=== PATIENT | female | born 1945 | race Caucasian/White ===

== ENCOUNTER 2024-12-27 08:37 | Emergency (ER) | payer MEDICARE, SELFPAY ==
[2024-12-27 08:40] VITALS: BP 113/71; PULSE 70; RESP 16; TEMP 36.6; O2SAT 97
--- NOTE | 2024-12-27 09:06 | PC.PHAR ---
patient is from [place] waiting on fax with the med list
--- NOTE | 2024-12-27 09:22 | W.ED.GENADLT ---
HPI - General Adult General: Chief complaint: Vaginal Bleeding Stated complaint: Vag Prolapse Time Seen by Provider: 12/27/24 08:39 History of Present Illness: 79-year-old female with moderate dementia presents emergency room via EMS with complaint of vaginal prolapse. She has some slight bleeding from this. No other reported symptoms. Patient is not able to tell me why she is here. Report from EMS was that she does attempt to wander from her dementia unit. Related Data Home Medications ?Medication ?Instructions ?Recorded ?Confirmed amlodipine 2.5 mg tablet 2.5 mg PO DAILY 12/27/24 12/27/24 memantine 5 mg tablet 15 mg PO DAILY 12/27/24 12/27/24 mirtazapine 15 mg tablet 15 mg PO QPM 12/27/24 12/27/24 Allergies Allergy/AdvReac Type Severity Reaction Status Date / Time No Known Allergies Allergy Verified 12/27/24 08:55 Review of Systems General: Reports: ROS unobtainable due to mental status Physical Exam Const: COMMON NORMALS: no acute distress GENERAL APPEARANCE: cooperative and comfortable HENMT: COMMON NORMALS: normocephalic, atraumatic and hearing grossly normal bilaterally HEAD & SCALP: normocephalic and atraumatic Resp: COMMON NORMALS: normal respiratory effort, No retractions, No use of accessory muscles and clear to auscultation bilaterally AUSCULTATION: clear to auscultation bilaterally Cardio: COMMON NORMALS: regular rate, regular rhythm and No murmurs present (Cardio) RATE: regular rate RHYTHM: regular rhythm GI: COMMON NORMALS: Soft to palpation and No hepatosplenomegaly present AUSCULTATION: Yes normoactive bowel sounds PALPATION: Yes Soft to palpation, No Tenderness to palpation present (GI), No Guarding due to palpation present (GI) and Yes No hepatosplenomegaly present : OTHER: Patient has vaginal prolapse with some ulceration. Superficially in the vaginal mucosa and the cervix. Easily reduced manually. Reverts to prolapse shortly after initial reduction. Extremity: COMMON NORMALS: normal to inspection, capillary refill normal, no clubbing, cyanosis or edema, no calf tenderness and no pedal edema Skin: COMMON NORMALS: no rashes or lesions noted GENERAL SKIN EXAM: no rashes or lesions noted Course Vital Signs: Vital signs: Vital Signs Temperature 97.8 F 12/27/24 08:40 Pulse Rate 70 12/27/24 08:40 Respiratory Rate 16 12/27/24 08:40 Blood Pressure 113/71 12/27/24 08:40 Pulse Oximetry 97 12/27/24 08:40 Oxygen Delivery Me thod Room Air 12/27/24 08:40 MDM - General Adult Medical Decision Making Easily reducible uterine prolapse however with minimal Valsalva she reprolapses. There is some ulceration and scant bleeding from it being prolapsed. Recommend applying topical water-based lubricant to minimize irritation to mucosal surfaces that are exposed refer to gynecology. Not emergent condition at this time UA was negative. Medical Records I reviewed the patient's medical records. Lab Data I reviewed the patient's lab results. Laboratory Results Urine Color Yellow (Yellow) 12/27/24 09:24 Urine Appearance Clear (CLEAR) 12/27/24 09:24 Urine pH 5.5 (5-7) 12/27/24 09:24 Ur Specific [place] 1.029 (1.005-1.030) 12/27/24 09:24 Urine Protein Negative (Negative) 12/27/24 09:24 Urine Glucose (UA) Negative (Normal) 12/27/24 09:24 Urine Ketones Negative (Negative) 12/27/24 09:24 Urine Blood Negative (Negative) 12/27/24 09:24 Urine Nitrate Negative (Negative) 12/27/24 09:24 Urine Bilirubin Negative (Negative) 12/27/24 09:24 Urine Urobilinogen 1.0 mg/dL (Negative) 12/27/24 09:24 Ur Leukocyte Esterase Negative (Negative) 12/27/24 09:24 Amorphous Sediment Not Reportable 12/27/24 09:24 No radiology studies performed this visit Discharge Plan Discharge Patient Disposition: Home Clinical Impression: Uterine prolapse Condition: Stable Prescriptions: No Action amlodipine 2.5 mg Tablet 2.5 mg PO DAILY mirtazapine 15 mg Tablet 15 mg PO QPM memantine 5 mg Tablet 15 mg PO DAILY Discharge Orders: Discharge ED (Routine); Ordered 12/27/24 Ordered By: David Dowd Discharge Diet: Usual diet Discharge Activity: Resume usual activity Patient Instructions: Opioid Safety, Pain Management Activity Restrictions/Additional Instructions: Thank you for choosing [facility] for your healthcare needs today. It is very important that you follow up as instructed or that you return to the Emergency Department should you have concerns or if your condition changes or worsens in any way. You were seen in the emergency room with complaints of a uterine prolapse. This is a nonemergent condition recommend applying topical water-based lubricant to the prolapsed portions they can be reduced as needed however whenever you are upright sitting up or strains such as to have a bowel movement or urinate it will likely prolapse spontaneously. Case management will make an appointment to follow-up with gynecology for treatment options. We did check a urine as well there is no sign of urinary tract infection at this time. Print Language: Kiswahili Coding Level of Care Code ED Program Development Specialist for Munira Lin
[2024-12-27 09:38] LABS: Bilirubin Urine Negative (Negative); Blood Urine Negative (Negative); Glucose Urine UA Negative (Normal); Ketones Urine Negative (Negative); Leukocyte Esterase Urine Negative (Negative); Nitrate Urine Negative (Negative); Protein Urine Negative (Negative); Specific Gravity, Urine 1.029 (1.005-1.030); Urine Appearance Clear (CLEAR); Urine Color Yellow (Yellow); pH Urine 5.5 (5-7)
[2024-12-27 09:43] LABS: Add Urine Microscopic? YES; Bacteria Urine None Seen /hpf; Hyaline Casts Urine 4.11 /lpf; Squamous Epithelial Cell Urine 0-5 /hpf (0-5)
[2024-12-27 10:04] LABS: UA Slide Review UA Slide Review Perf
[2024-12-27 10:44] VITALS: BP 112/80; PULSE 72; O2SAT 97
--- NOTE | 2024-12-29 07:46 | DCPLANNER ---
messaged [facility] for er f/u
== END 2024-12-27 10:55 | disposition home or self-care (01) ==
PROVIDERS: Emergency Provider Family Medicine
DX: N81.4 Uterovaginal prolapse, unspecified (principal)
CPT/HCPCS: 81001; 99283

== ENCOUNTER 2024-12-28 23:44 | Emergency (ER) | payer MEDICARE, SELFPAY ==
[2024-12-28 23:52] VITALS: BP 173/72; PULSE 82; RESP 18; TEMP 36.7; O2SAT 98; BMI 22.4
[2024-12-29 00:01] VITALS: RESP 18
--- NOTE | 2024-12-29 00:32 | W.ED.FEMALGU ---
HPI - Female Genitourinary General: Chief complaint: Urogenital-Female Stated complaint: BLADDER ISSUE Time Seen by Provider: 12/28/24 23:53 History of Present Illness: This patient is an 79-year-old white female [facility] resident who was sent to the emergency department for evaluation of uterine prolapse. This has happened several times recently. Her sons are here with her and they state that she was just recently placed in the penitentiary and has her first primary care appointment coming up later this week. They plan on getting a referral to gynecology. [facility] sent the patient in because they noticed some bleeding. Related Data Home Medications ?Medication ?Instructions ?Recorded ?Confirmed amlodipine 2.5 mg tablet 2.5 mg PO DAILY 12/27/24 12/27/24 memantine 5 mg tablet 15 mg PO DAILY 12/27/24 12/27/24 mirtazapine 15 mg tablet 15 mg PO QPM 12/27/24 12/27/24 Allergies Allergy/AdvReac Type Severity Reaction Status Date / Time No Known Allergies Allergy Verified 12/28/24 23:56 Review of Systems General: Reports: 10 or more systems reviewed and unremarkable except in HPI and below : Reports: prolapse symptoms Physical Exam Const: COMMON NORMALS: no acute distress, patient oriented x3 and no limitations GENERAL APPEARANCE: cooperative and comfortable HENMT: COMMON NORMALS: normocephalic, atraumatic, Normal nasal mucous membranes and turbinates present, moist oral mucous membranes and oropharynx normal HEAD & SCALP: normal to inspection, normocephalic and atraumatic FACE & SINUS: normal facial exam NOSE: Normal nasal mucous membranes and turbinates present Eye: COMMON NORMALS: Equal, round and reactive pupils present, EOMs intact bilaterally and conjunctivae normal GENERAL EYE: appearance normal, both eyes and all related structures CONJUNCTIVA: Yes conjunctivae normal PUPIL: Yes Equal, round and reactive pupils present Neck/C-Spine: COMMON NORMALS: supple and no JVD Chest: COMMONS NORMALS: normal inspection of the chest Resp: COMMON NORMALS: normal respiratory effort and clear to auscultation bilaterally AUSCULTATION: clear to auscultation bilaterally Cardio: COMMON NORMALS: no JVD, regular rate, regular rhythm, No gallops present (Cardio), No murmurs present (Cardio) and No rub (Cardio) RATE: regular rate RHYTHM: regular rhythm GI: COMMON NORMALS: Normal to inspection, nondistended, normoactive bowel sounds present, Soft to palpation and non-tender AUSCULTATION: Yes normoactive bowel sounds PALPATION: Yes Soft to palpation : COMMON NORMALS: Yes no CVA tenderness BLADDER/KIDNEY EXAM: Yes no CVA tenderness EXTERNAL FEMALE EXAM: Yes other (Uterine prolapse) Back/Pelvis: COMMON NORMALS: no CVA tenderness and thoracic and lumbar spine normal to inspection Extremity: COMMON NORMALS: normal to inspection Neuro: COMMON NORMALS: patient oriented x3 and CN's II-XII intact bilaterally Psych: COMMON NORMALS: mental status grossly normal, Normal thought process present and cooperative THOUGHT PROCESS: Normal thought process present Skin: COMMON NORMALS: no rashes or lesions noted, turgor normal and no jaundice GENERAL SKIN EXAM: no rashes or lesions noted and turgor normal Course Vital Signs: Vital signs: Vital Signs Temperature 98.0 F 12/28/24 23:52 Pulse Rate 82 12/28/24 23:52 Respiratory Rate 18 12/29/24 00:01 Blood Pressure 173/72 12/28/24 23:52 Pulse Oximetry 98 12/28/24 23:52 [facility] - Female Medical Decision Making I did easily reduce the prolapse. Patient was [facility] the [facility]. Follow-up with primary care and gynecology. No radiology studies performed this visit Discharge Plan Discharge Patient Disposition: Home Clinical Impression: Uterine prolapse Condition: Stable Prescriptions: No Action amlodipine 2.5 mg Tablet 2.5 mg PO DAILY mirtazapine 15 mg Tablet 15 mg PO QPM memantine 5 mg Tablet 15 mg PO DAILY Discharge Orders: Discharge ED (Routine); Ordered 12/29/24 Ordered By: Ozzy Murphy Patient Instructions: Uterine Prolapse (ED) Activity Restrictions/Additional Instructions: Follow-up with gynecology. Print Language: Welsh Coding Level of Care Code ED Pipelaying Fitter for Munira Lin
[2024-12-29 00:44] VITALS: BP 173/72; PULSE 71; O2SAT 94
== END 2024-12-29 00:46 | disposition home or self-care (01) ==
PROVIDERS: Emergency Provider Emergency Medicine
DX: N81.4 Uterovaginal prolapse, unspecified (principal)
CPT/HCPCS: 99282

== ENCOUNTER 2025-01-08 05:17 | Emergency (ER) | payer MEDICARE, SELFPAY ==
[2025-01-08 05:19] VITALS: BP 156/88; PULSE 83; RESP 18; TEMP 36.2; O2SAT 98; BMI 20.3
--- NOTE | 2025-01-08 05:30 | CTR_ITS ---
PROCEDURE INFORMATION: Exam: CT Abdomen And Pelvis With Contrast Exam date and time: 01/08/2025 6:18 AM Age: 79 years old Clinical indication: Vomiting TECHNIQUE: Imaging protocol: Computed tomography of the abdomen and pelvis with contrast. Radiation optimization: All CT scans at this facility use at least one of these dose optimization techniques: automated exposure control; mA and/or kV adjustment per patient size (includes targeted exams where dose is matched to clinical indication); or iterative reconstruction. Contrast material: OMNI 350; Contrast volume: 100 ml; Contrast route: INTRAVENOUS (IV); COMPARISON: No relevant prior studies available. RADIATION DOSE METRICS: Total DLP (mGy-cm): 518.14 FINDINGS: Liver: Normal. No mass. Gallbladder and biliary ducts: Normal. No calcified stones. No ductal dilation. Pancreas: Normal. No ductal dilation. Spleen: Normal. No splenomegaly. Adrenal glands: 9 mm left adrenal indeterminate nodule. Kidneys and ureters: Prominence left renal pelvis. Left renal peripelvic cysts. No definite hydronephrosis. Stomach and bowel: There are mildly prominent small bowel loops throughout the abdomen with mild bowel wall thickening suggesting mild enteritis. Appendix: No evidence of appendicitis. Intraperitoneal space: Unremarkable. No free air. No significant fluid collection. Vasculature: Calcified atherosclerotic plaque noted. Lymph nodes: Unremarkable. No enlarged lymph nodes. Urinary bladder: Unremarkable as visualized. Reproductive: There has been hysterectomy. Bones/joints: Unremarkable. No acute fracture. Soft tissues: Unremarkable. CT/CT abdomen pelvis w con* [id number] IMPRESSION: 1. 9 mm left adrenal indeterminate nodule. Consider nonemergent unenhanced CT or MR abdomen for further evaluation. 2. Findings suggesting enteritis. COMMENTS: Consistent with the [employer]'s Incidental Findings Committee white paper (J Am Vito Radiol 2017): Any incidental adrenal lesion less than 1 cm is likely benign. No follow-up imaging is recommended for these lesions per consensus recommendations based on imaging criteria. Further lab evaluation could be pursued if warranted based on clinical findings.
--- NOTE | 2025-01-08 05:36 | W.ED.NAVMDI ---
HPI - Nausea/Vomiting/Diarrhea General: Chief complaint: Nausea/Vomiting/Diarrhea Stated complaint: N/V Time Seen by Provider: 01/08/25 05:22 Source: EMS Mode of arrival: EMS Limitations: altered mental status History of Present Illness: 79-year-old female is here from detention patient has a history dementia no history is available from her. Per EMS nursing was concerned she may have a small bowel obstruction she has been having vomiting since last night some abdominal cramping she is in no distress here no fever has not had a bowel movement in a couple days. Associated nausea: Yes Associated symtoms: Reports altered mental status and nausea; Denies chest pain, dysuria or headache(s) Related Data Home Medications ?Medication ?Instructions ?Recorded ?Confirmed amlodipine 2.5 mg tablet 2.5 mg PO DAILY 12/27/24 01/08/25 memantine 5 mg tablet 15 mg PO DAILY 12/27/24 01/08/25 mirtazapine 15 mg tablet 15 mg PO QPM 12/27/24 01/08/25 lorazepam 0.5 mg tablet 0.5 mg PO DAILY PRN Anxiety 01/08/25 01/08/25 Previous Rx's ?Medication ?Instructions ?Recorded cephalexin 500 mg capsule 500 mg PO TID 7 days #21 caps 01/08/25 ondansetron 4 mg disintegrating 4 mg PO Q6H PRN nausea and 01/08/25 tablet vomiting #14 tabs Allergies Allergy/AdvReac Type Severity Reaction Status Date / Time No Known Allergies Allergy Verified 12/28/24 23:56 Review of Systems Const: Denies: fever(s), chills, body aches or change in appetite ENMT: Denies: throat pain or dental pain Card: Denies: chest pain Resp: Denies: dyspnea GI: Reports: nausea and vomiting; Denies: abdominal pain or diarrhea : Denies: dysuria Musc: Denies: neck pain or back pain Skin/Breast: Denies: rash Neuro: Denies: headache(s) Physical Exam Const: EXAM LIMITATIONS: altered mental status GENERAL APPEARANCE: well kempt HENMT: COMMON NORMALS: normocephalic and atraumatic HEAD & SCALP: normocephalic and atraumatic Eye: COMMON NORMALS: conjunctivae normal CONJUNCTIVA: Yes conjunctivae normal Neck/C-Spine: COMMON NORMALS: full ROM and supple Chest: COMMONS NORMALS: normal inspection of the chest and normal palpation of entire chest wall Resp: COMMON NORMALS: normal respiratory effort, No retractions, No use of accessory muscles and clear to auscultation bilaterally AUSCULTATION: clear to auscultation bilaterally Cardio: COMMON NORMALS: regular rate, regular rhythm and No murmurs present (Cardio) RATE: regular rate RHYTHM: regular rhythm GI: COMMON NORMALS: Normal to inspection, nondistended, normoactive bowel sounds present, Soft to palpation, non-tender and no masses PALPATION: Yes Soft to palpation Extremity: COMMON NORMALS: normal to inspection and full ROM Neuro: COMMON NORMALS: moves all extremities and no focal motor deficits Psych: COMMON NORMALS: mental status grossly normal, Normal thought process present and cooperative APPEARANCE: Yes well kempt THOUGHT PROCESS: Normal thought process present Skin: COMMON NORMALS: no rashes or lesions noted and no wounds GENERAL SKIN EXAM: no rashes or lesions noted Course Vital Signs: Vital signs: Vital Signs Temperature 97.1 F L 01/08/25 05:19 Pulse Rate 78 01/08/25 06:40 Respiratory Rate 16 01/08/25 06:40 Blood Pressure 165/71 01/08/25 06:40 Pulse Oximetry 98 01/08/25 06:40 Oxygen Delivery Me thod Room Air 01/08/25 06:40 MDM - Nausea/Vomiting/Diarrhea Medical Decision Making Patient presents here with vomiting she was found to have a UTI CT showed no acute abnormalities no signs obstruction she is able to tolerate p.o. here we will start on antibiotics for UTI she is follow-up PCP return if worsening. Medical Records I reviewed the patient's medical records. Lab Data I reviewed the patient's lab results. 01/08/25 05:34 01/08/25 05:34 Radiology Impressions Abdomen/Pelvis CT 01/08/25 05:30 IMPRESSION: 1. 9 mm left adrenal indeterminate nodule. Consider nonemergent unenhanced CT or MR abdomen for further evaluation. 2. Findings suggesting enteritis. COMMENTS: Consistent with the [employer]'s Incidental Findings Committee white paper (J Am Vito Radiol 2017): Any incidental adrenal lesion less than 1 cm is likely benign. No follow-up imaging is recommended for these lesions per consensus recommendations based on imaging criteria. Further lab evaluation could be pursued if warranted based on clinical findings. Laboratory Results WBC 14.01 10^3/uL (3.29-11.43) H 01/08/25 05:34 RBC 3.99 10^6/uL (3.85-5.65) 01/08/25 05:34 Hgb 11.60 g/dL (11.27-16.99) 01/08/25 05:34 Hct 36.3 % (36-47) 01/08/25 05:34 MCV 91.0 fl (85-98) 01/08/25 05:34 MCH 29.1 pg (27-33) 01/08/25 05:34 MCHC 32.0 g/dL (30-55) 01/08/25 05:34 RDW 14.5 % (12.1-15.1) 01/08/25 05:34 Plt Count 218 10^3/cmm (157-399) 01/08/25 05:34 MPV 8.5 fL (7.4-10.4) 01/08/25 05:34 Neut % (Auto) 90.5 % 01/08/25 05:34 Lymph % (Auto) 2.8 % 01/08/25 05:34 Victoria % (Auto) 4.6 % 01/08/25 05:34 Eos % (Auto) 1.4 % 01/08/25 05:34 Baso % (Auto) 0.2 % 01/08/25 05:34 Neut # (Auto) 12.67 10^3/uL (1.8-7.7) H 01/08/25 05:34 Lymph # (Auto) 0.4 10^3/uL (0.8-4.8) L 01/08/25 05:34 Victoria # (Auto) 0.7 10^3/uL (0.2-0.9) 01/08/25 05:34 Eos # (Auto) 0.2 10^3/uL (0.0-0.8) 01/08/25 05:34 Baso # (Auto) 0.0 10^3/uL (0.0-0.1) 01/08/25 05:34 Nucleated RBC % (auto) 0 % 01/08/25 05:34 Nucleated RBCs # 0.0 /100WBC 01/08/25 05:34 Sodium 141 mmol/L (136-145) 01/08/25 05:34 Potassium 4.2 mmol/L (3.5-5.1) 01/08/25 05:34 Chloride 105 mmol/L (98-107) 01/08/25 05:34 Carbon Dioxide 27 mmol/L (22-29) 01/08/25 05:34 Anion Gap 13.2 (5-19) 01/08/25 05:34 BUN 11 mg/dL (8-23) 01/08/25 05:34 Creatinine 0.7 mg/dL (0.5-0.9) 01/08/25 05:34 GFR Calculation Not Reportable 01/08/25 05:34 Glucose 153 mg/dL (65-115) H 01/08/25 05:34 Calculated Osmolality 294 mOsm/kg (285-295) 01/08/25 05:34 Calcium 8.4 mg/dL (8.5-10.5) L 01/08/25 05:34 Total Bilirubin 0.2 mg/dL (0.15-1.2) 01/08/25 05:34 AST 21 U/L (0-32) 01/08/25 05:34 ALT 15 U/L (0-33) 01/08/25 05:34 Alkaline Phosphatase 130 U/L (35-105) H 01/08/25 05:34 Total Protein 7.0 g/dL (6.6-8.7) 01/08/25 05:34 Albumin 3.8 g/dL (3.5-5.2) 01/08/25 05:34 Globulin 3.2 g/dL (1.3-4.6) 01/08/25 05:34 Lipase 26 U/L (13-60) 01/08/25 05:34 Urine Color Yellow (Yellow) 01/08/25 06:35 Urine Appearance Cloudy (CLEAR) A 01/08/25 06:35 Urine pH 8.0 (5-7) A 01/08/25 06:35 Ur Specific [place] 1.045 (1.005-1.030) H 01/08/25 06:35 Urine Protein Trace (Negative) A 01/08/25 06:35 Urine Glucose (UA) Negative (Normal) 01/08/25 06:35 Urine Ketones Negative (Negative) 01/08/25 06:35 Urine Blood Non-haemolysed trace (Negative) 01/08/25 06:35 Urine Nitrate Negative (Negative) 01/08/25 06:35 Urine Bilirubin Negative (Negative) 01/08/25 06:35 Urine Urobilinogen 0.2 mg/dL (Negative) 01/08/25 06:35 Ur Leukocyte Esterase 2+ (Negative) A 01/08/25 06:35 Urine RBC 6-10 /hpf (0-2) 01/08/25 06:35 Urine WBC >100 /hpf (0-5) H 01/08/25 06:35 Ur Squamous Epith Cells 21-50 /hpf (0-5) H 01/08/25 06:35 Amorphous Sediment Not Reportable 01/08/25 06:35 Urine Bacteria 4+ /hpf (NONE) H 01/08/25 06:35 Hyaline Casts 20.27 /lpf 01/08/25 06:35 All radiology interpretation(s) finalized by discharge Discharge Plan Discharge Patient Disposition: Home Clinical Impression: Acute cystitis, Vomiting Condition: Stable Prescriptions: New cephalexin 500 mg capsule 500 mg PO TID 7 Days Qty: 21 0RF ondansetron 4 mg tablet,disintegrating 4 mg PO Q6H PRN (Reason: nausea and vomiting) Qty: 14 0RF No Action amlodipine 2.5 mg Tablet 2.5 mg PO DAILY mirtazapine 15 mg Tablet 15 mg PO QPM memantine 5 mg Tablet 15 mg PO DAILY lorazepam 0.5 mg tablet 0.5 mg PO DAILY PRN (Reason: Anxiety) Discharge Orders: Discharge ED (Routine); Ordered 01/08/25 Ordered By: Александр Razo Discharge Diet: Advance as tolerated Discharge Activity: Resume usual activity Patient Instructions: Urinary Tract Infection in Women (ED), Acute Nausea and Vomiting (ED) Print Language: Setswana Coding Level of Care Code ED Non Morse Intercept Technician for Munira Lin
[2025-01-08 05:39] VITALS: BP 160/81; PULSE 74; RESP 14; O2SAT 99
[2025-01-08 05:43] LABS: Basophils % 0.2 %; Eosinophils # 0.2 10^3/uL (0.0-0.8); Eosinophils % 1.4 %; Hematocrit 36.3 % (36-47); Lymphocytes # 0.4 10^3/uL (0.8-4.8); Lymphocytes % 2.8 %; Mean Corpuscular Hemoglobin 29.1 pg (27-33); Mean Platelet Volume 8.5 fL (7.4-10.4); Monocytes # 0.7 10^3/uL (0.2-0.9); Monocytes % 4.6 %; Neutrophils # 12.67 10^3/uL (1.8-7.7); Neutrophils % 90.5 %; Nucleated Red Blood Cells % 0 %; Platelet Count 218 10^3/cmm (157-399); Red Blood Count 3.99 10^6/uL (3.85-5.65); Red Cell Distribution Width 14.5 % (12.1-15.1); White Blood Count 14.01 10^3/uL (3.29-11.43)
[2025-01-08] MEDS: ondansetron 2 mg/ML SDV 2 mL 4 MG IVP ×2 (05:43→09:12)
[2025-01-08 06:00] LABS: Alanine Aminotransferase 15 U/L (0-33); Albumin Level 3.8 g/dL (3.5-5.2); Alkaline Phosphatase 130 U/L (35-105); Anion Gap 13.2 (5-19); Aspartate Amino Transferase 21 U/L (0-32); Blood Urea Nitrogen 11 mg/dL (8-23); Calcium 8.4 mg/dL (8.5-10.5); Carbon Dioxide 27 mmol/L (22-29); Chloride 105 mmol/L (98-107); Creatinine Clr Calc Pharmacy 61.8827; Globulin 3.2 g/dL (1.3-4.6); Glucose 153 mg/dL (65-115); Lipase 26 U/L (13-60); Osmolality Calculated 294 mOsm/kg (285-295); Potassium 4.2 mmol/L (3.5-5.1); Sodium 141 mmol/L (136-145); Total Bilirubin 0.2 mg/dL (0.15-1.2)
[2025-01-08] MEDS: iohexol 350 mg/mL 500 mL Btl (per mL) IV (06:23)
[2025-01-08 06:40] VITALS: BP 165/71; PULSE 78; RESP 16; O2SAT 98
[2025-01-08 06:48] LABS: Bilirubin Urine Negative (Negative); Blood Urine Non-haemolysed trace (Negative); Glucose Urine UA Negative (Normal); Ketones Urine Negative (Negative); Leukocyte Esterase Urine 2+ (Negative); Nitrate Urine Negative (Negative); Protein Urine Trace (Negative); Urine Appearance Cloudy (CLEAR); Urine Color Yellow (Yellow); Urobilinogen Urine 0.2 mg/dL (Negative)
[2025-01-08 06:53] LABS: Add Urine Microscopic? YES; Bacteria Urine 4+ /hpf; Hyaline Casts Urine 20.27 /lpf; Squamous Epithelial Cell Urine 21-50 /hpf (0-5); WBC Urine >100 /hpf (0-5)
[2025-01-08 07:00] LABS: Specific Gravity, Urine 1.045 (1.005-1.030); UA Slide Review UA Slide Review Perf
[2025-01-08] MEDS: cefTRIAXone 1,000 mg SDV 1000 MG IVP (07:26)
--- NOTE | 2025-01-08 07:31 | PC.PHAR ---
patient is from [place]
[2025-01-08 09:22] VITALS: BP 152/90; PULSE 69; O2SAT 93
== END 2025-01-08 09:24 | disposition home or self-care (01) ==
PROVIDERS: Emergency Provider Emergency Medicine
DX: N30.00 Acute cystitis without hematuria (principal); R11.10 Vomiting, unspecified
CPT/HCPCS: 36415; 74177; 80053; 81001; 83690; 85025; 96374; 96375; 96376; 99285; J0696; J2405

== ENCOUNTER 2025-02-06 13:53 | Outpatient (CLI) | payer MEDICARE, SELFPAY ==
[2025-02-06 14:09] LABS: Bilirubin Urine Negative (Negative); Blood Urine 1+ (Negative); Glucose Urine UA Negative (Normal); Ketones Urine Negative (Negative); Leukocyte Esterase Urine Trace (Negative); Nitrate Urine Negative (Negative); Protein Urine Negative (Negative); Specific Gravity, Urine 1.013 (1.005-1.030); Urine Appearance Cloudy (CLEAR); Urine Color Yellow (Yellow); pH Urine 6.5 (5-7)
[2025-02-06 14:14] LABS: Add Urine Microscopic? YES; Bacteria Urine 4+ /hpf; Hyaline Casts Urine 3.71 /lpf; Squamous Epithelial Cell Urine 0-5 /hpf (0-5)
[2025-02-06 14:32] LABS: Amorphous Sediment Urine 2+ /hpf
== END 2025-02-06 13:54 | disposition home or self-care (01) ==
PROVIDERS: Visit Provider Family Medicine
DX: N39.0 Urinary tract infection, site not specified (principal); R41.82 Altered mental status, unspecified
CPT/HCPCS: 81001; 87086

== ENCOUNTER 2025-03-14 18:29 | Outpatient (CLI) | payer MEDICARE, SELFPAY ==
[2025-03-14 18:42] LABS: Bilirubin Urine Negative (Negative); Blood Urine 2+ (Negative); Glucose Urine UA Negative (Normal); Ketones Urine Trace (Negative); Leukocyte Esterase Urine Negative (Negative); Nitrate Urine Negative (Negative); Protein Urine Negative (Negative); Specific Gravity, Urine 1.023 (1.005-1.030); Urine Appearance Clear (CLEAR); Urine Color Yellow (Yellow); pH Urine 5.5 (5-7)
[2025-03-14 18:48] LABS: Add Urine Microscopic? YES; Bacteria Urine None Seen /hpf; Hyaline Casts Urine 1.21 /lpf; Squamous Epithelial Cell Urine 0-5 /hpf (0-5); WBC Urine 0-5 /hpf (0-5)
[2025-03-14 19:04] LABS: Add Urine Culture? No; UA Slide Review UA Slide Review Perf
== END 2025-03-14 18:30 | disposition home or self-care (01) ==
LOC: LAB 18:33
PROVIDERS: Visit Provider Family Medicine
DX: N39.0 Urinary tract infection, site not specified (principal)
CPT/HCPCS: 81001; 87086

== ENCOUNTER 2025-05-05 21:24 | Outpatient (CLI) | payer MEDICARE, SELFPAY ==
[2025-05-05 21:37] LABS: Glucose Urine UA Negative (Normal); Nitrate Urine Negative (Negative); Specific Gravity, Urine 1.010 (1.005-1.030)
[2025-05-05 21:42] LABS: Add Urine Microscopic? YES
== END 2025-05-05 21:25 | disposition home or self-care (01) ==
LOC: LAB 21:28
PROVIDERS: Visit Provider Family Medicine
DX: N39.0 Urinary tract infection, site not specified (principal)
CPT/HCPCS: 81001; 87077; 87086; 87186

== ENCOUNTER 2025-05-06 10:52 | Outpatient (CLI) | payer MEDICARE, SELFPAY ==
[2025-05-06 11:44] LABS: Hematocrit 39.2 % (36-47); Hemoglobin 12.50 g/dL (11.27-16.99); Mean Corpuscular HGB Conc 31.9 g/dL (30-55); Mean Corpuscular Hemoglobin 28.4 pg (27-33); Mean Corpuscular Volume 89.1 fl (85-98); Nucleated Red Blood Cells % 0 %; Platelet Count 268 10^3/cmm (157-399); Red Blood Count 4.40 10^6/uL (3.85-5.65); White Blood Count 5.44 10^3/uL (3.29-11.43)
[2025-05-06 12:13] LABS: Alanine Aminotransferase 16 U/L (0-33); Albumin Level 4.1 g/dL (3.5-5.2); Alkaline Phosphatase 131 U/L (35-105); Anion Gap 15.5 (5-19); Aspartate Amino Transferase 28 U/L (0-32); Blood Urea Nitrogen 14 mg/dL (8-23); Calcium 9.2 mg/dL (8.5-10.5); Carbon Dioxide 28 mmol/L (22-29); Chloride 100 mmol/L (98-107); Cholesterol 216 mg/dL (0-200); Globulin 3.1 g/dL (1.3-4.6); Glucose 87 mg/dL (65-115); HDL Cholesterol 101 mg/dL (60-100); Osmolality Calculated 290 mOsm/kg (285-295); Potassium 3.5 mmol/L (3.5-5.1); Sodium 140 mmol/L (136-145); Total Protein 7.2 g/dL (6.6-8.7); Triglycerides 58 mg/dL (0-150)
== END 2025-05-06 10:53 | disposition home or self-care (01) ==
PROVIDERS: Visit Provider Family Medicine
DX: E11.9 Type 2 diabetes mellitus without complications (principal); I10 Essential (primary) hypertension
CPT/HCPCS: 80053; 80061; 85025

== ENCOUNTER 2025-05-10 09:03 | Emergency (ER) | payer MEDICARE, SELFPAY ==
--- OUTSIDE RECORDS SUMMARY | 2025-04-10 04:00 | XMS_ITS ---
Author Organization [facility] Address [address] [place] [address] Care Team Providers Care Lead Level Designer Name Role Phone Wilmer GARCIA, Edd Primary Care Provider Brenna Padron Unavailable [phone] REASON FOR VISIT PESSARY Encounters Encounter Location Date Provider Diagnosis [address] [place] [address] 04/10/2025 Brenna Duncan Plan Of Treatment Next Appt Details Provider Name:Brenna Mcgrath ers, 07/03/2025 11:00:00 AM, [address] [place] [address] , [address], [place], [address], Progress Notes * DAMION JOHNSONDOB:[birth year] (79 yo F)Acc No.[id number]:04/10/2025 Patient: Sol LOWE DAMION Provider: Obdulio Duncan MD :1945 A ge:79 Y S ex:Female Date:04/10/2025 Address:[address] [place], [place] [phone] Pcp:Edd Guillen MD Subjective: * Chief Complaints: * P ESSARY * Electronic signature of Linda Duncan MD on 05/10/2025 at 09:09 AM CDT Sign off status: Pending * Provider: Obdulio Duncan MD Date: 04/10/2025 Generated for Printi ng/Faxing/eTransmitting on: 0 05/10/2025 09:09 AM CDT
--- OUTSIDE RECORDS SUMMARY | 2025-05-01 04:30 | XMS_ITS ---
Author Organization [facility] Address [address] [place] [address] Care Team Providers Care Ict Systems Test Engineer Name Role Phone Wilmer GARCIA, Edd Primary Care Provider Brenna Padron Unavailable [phone] REASON FOR VISIT consult Encounters Encounter Location Date Provider Diagnosis [address] [place] [address] 05/01/2025 Brenna Duncan Plan Of Treatment Next Appt Details Provider Name:Brenna Mcgrath ers, 07/03/2025 11:00:00 AM, [address] [place] [address] Dr, [address], [place], [address], Progress Notes * DAMION JOHNSONDOB:[birth year] (79 yo F)Acc No.[id number]:05/01/2025 Patient: Sol MILTONMUNIRA DAMION Provider: Obdulio Duncan MD :1945 A ge:79 Y S ex:Female Date:05/01/2025 Address:[address] [place], [place] [phone] Pcp:Edd Guillen MD Subjective: * Chief Complaints: * C onsult * Electronic signature of Linda Duncan MD on 05/10/2025 at 09:10 AM CDT Sign off status: Pending * Provider: Obdulio Duncan MD Date: 05/01/2025 Generated for Printi ng/Faxing/eTransmitting on: 05/10/2025 09:10 AM CDT
[2025-05-10 09:04] VITALS: BP 153/79; PULSE 64; RESP 18; TEMP 36.8; O2SAT 98
--- OUTSIDE RECORDS SUMMARY | 2025-05-10 09:10 | XMS_ITS | Patient Health Record ---
Author Organization [facility] Address [address] [place] [address] Care Team Providers Care Tower Equipment Installer Name Role Phone Edd Guillen MD Primary Care Provider Unavaila ble Brenna Duncan Unavailable [phone] Allergies No Known Allergies Reason For Referral Reason PROLAPSED CERVIX u nable to accept. Diagnosis 1 Cervical prolapse (N 81.2) Referred Organization [facility] Referred Provider Brenna Duncan Referred Address [address] [facility] [address],[place], [place],[address], Referred Provider Specialty Life Skills Consultant and refrigeration plant cork insulator Referral Priority Routine Medications Medication SIG (Take, Route, Frequency, Duration) Notes Start Date End Date Status Mirtazapine Active LORazepam Active Memantine HCl Active amLODIPine Benzoate Active Estradiol 0.1 MG/GM Cream 1 g Vaginal Tw o times a Week; Duration: 90 days 03/09/2025 Active Social History Tobacco Use: Social History Observation Description Date Details (start date - stop date) Never Smoker NA - NA Social History Tobacco Use: Social Info Question Answer Notes Tobacco Control (Standard) Tobacco use: Nonsmoker Additional Details Category Social Info Options Details Drugs/Alcohol: Do you smoke marijuana? De nies Do you drink alcohol? No Section Notes: Negative x3, lives in assist ed living facility, safe, denies h/o abuse, retired Negative x3, lives in assist ed living facility, safe, denies h/o abuse, retired Problems Problem Type SNOMED Code ICD Code Onset Dates Problem Status W/U Status Risk Notes Problem Insomnia (931701091) Insomnia (G47.00) Active confirmed Problem Atrophy of vagina (620335113) Vaginal atrophy (N95.2) Active confirmed Problem Complete uterine prolapse (10828961) Complete uterine prolapse (N81.3) Active confirmed Problem Dementia with behavioral disturbance (disorder) (1722129625297) Unspecified dementia, unspecified severity, with other behavioral disturbance (F03.918) Active confirmed Problem Unspecified dementia, severe, with other behavioral disturbance (F03.C18) Active confirmed Problem Incomplete uterovaginal prolapse (791873070) Cervical prolapse (N81.2) Active confirmed Vital Signs Heart Rate 71 /min 04/03/2025 Respiratory Rate 18 /min 04/03/2025 Oximetry 96 % 04/03/2025 Blood pressure diastolic 70 mm Hg 04/03/2025 Weight-kg 72.9 kg 04/03/2025 Blood pressure systolic 110 mm Hg 04/03/2025 Weight 160.72 lbs 04/03/2025 Encounters Encounter Location Date Provider Diagnosis [address] [place] [address] 01/02/[address] [place] [address] 01/09/2025 Brenna Duncan [address] [place] [address] 01/23/2025 Brenna Duncan [address] [place] [address] 03/08/[address] [place] [address] 03/09/2025 Brenna Duncan [address] [place] [address] 03/14/2025 Brenna Duncan [address] [place] [address] 02/21/2025 Brenna Duncan Complete uterine prolapse N81.3 and Vaginal atrophy N95.[address] [place] [address] 04/03/2025 Brenna Duncan Complete uterine prolapse N81.3 and Vaginal atrophy N95.2 Assessments Encounter Date Diagnosis (ICD Code) Assessment Notes Treatment Notes Treatment Clinical Notes Section Notes 02/21/2025 Vaginal atrophy (ICD-10 - N95.2) start vaginal estorgen 02/21/2025 Complete uterine prolapse (ICD-10 - N81.3) 64,mm gellhorn placed, really needs 70mm, dont have one in clinic, will order and call when arrives start estrogen I will care for the pessary 04/03/2025 Complete uterine prolapse (ICD-10 - N81.3) 64 mm gellhorn removed, cleaned and replaced today Continue estrogenI will care for the pessary RTC 3 months for pessary care 04/03/2025 Vaginal atrophy (ICD-10 - N95.2) continue estrogen Plan Of Treatment Next Appt Details Provider Name:Brenna Mcgrath ers, 07/03/2025 11:00:00 AM, [address] [place] [address] , [address], [place], [address], Insurance Providers Payer Name Payer Address Payer Phone Subscriber Number Group Number Insured Name Patient Relationship to Insured Coverage Start Date Coverage End Date [place] [address] [place]UZ [phone] [id number] DAMION JOHNSON Self - patient is the insured [facility] Medicare Supplement [address] [place] [address] [id number] DAMION JOHNSON Self - patient is the insured Medical (General) History Medical History History ICD Code anxiety depression hypertension Alzheimer's
--- OUTSIDE RECORDS SUMMARY | 2025-05-10 09:10 | XMS_ITS ---
Author Organization Unknown [facility] Start Date Provider Encounter for Check-up [phone] Jose natarajan [facility]
--- NOTE | 2025-05-10 09:12 | W.ED.HEATRA ---
HPI - Head Injury General: Chief complaint: Head Injury Stated complaint: Fall, Hit Head Time Seen by Provider: 05/10/25 09:11 History of Present Illness: 79-year-old female resident of half-way fell hit the back of her head on d arrives via EMS with a c-collar in place. She has some mild dementia she is not a very good historian is mildly disoriented. Does complain of some mild head and neck pain. No reported loss conscious not on any anticoagulants Related Data Home Medications ?Medication ?Instructions ?Recorded ?Confirmed amlodipine 2.5 mg tablet 2.5 mg PO DAILY 12/27/24 05/10/25 memantine 5 mg tablet 5 mg PO BID 12/27/24 05/10/25 mirtazapine 15 mg tablet 15 mg PO QPM 12/27/24 05/10/25 memantine 10 mg tablet 10 mg PO BID 05/10/25 05/10/25 risperidone 0.5 mg tablet 0.5 mg PO BID 05/10/25 05/10/25 risperidone 1 mg tablet 1 mg PO BEDTIME 05/10/25 05/10/25 zaleplon 5 mg capsule 5 mg PO BEDTIME PRN Insomnia 05/10/25 05/10/25 Previous Rx's ?Medication ?Instructions ?Recorded ondansetron 4 mg disintegrating 4 mg PO Q6H PRN nausea and 01/08/25 tablet vomiting #14 tabs Allergies Allergy/AdvReac Type Severity Reaction Status Date / Time No Known Allergies Allergy Verified 12/28/24 23:56 Physical Exam HENMT: COMMON NORMALS: normocephalic, atraumatic and hearing grossly normal bilaterally HEAD & SCALP: normocephalic and atraumatic Resp: COMMON NORMALS: normal respiratory effort, No retractions, No use of accessory muscles and clear to auscultation bilaterally AUSCULTATION: clear to auscultation bilaterally Cardio: COMMON NORMALS: regular rate, regular rhythm and No murmurs present (Cardio) RATE: regular rate RHYTHM: regular rhythm GI: COMMON NORMALS: Soft to palpation and No hepatosplenomegaly present AUSCULTATION: Yes normoactive bowel sounds PALPATION: Yes Soft to palpation, No Tenderness to palpation present (GI), No Guarding due to palpation present (GI) and Yes No hepatosplenomegaly present Extremity: COMMON NORMALS: normal to inspection, capillary refill normal, no clubbing, cyanosis or edema, no calf tenderness and no pedal edema Skin: COMMON NORMALS: no rashes or lesions noted GENERAL SKIN EXAM: no rashes or lesions noted Course Vital Signs: Vital signs: Vital Signs Temperature 98.2 F 05/10/25 09:04 Pulse Rate 61 05/10/25 12:51 Respiratory Rate 18 05/10/25 09:04 Blood Pressure 150/76 05/10/25 12:51 Pulse Oximetry 98 05/10/25 12:51 Oxygen Delivery Me thod Room Air 05/10/25 09:04 MDM - Head Injury Medcial Decision Making Labs and imaging unremarkable reviewed findings we will discharge patient back to [facility]-way. Continue routine care send medications Medical Records I reviewed the patient's medical records. Lab Data I reviewed the patient's lab results. 05/10/25 10:20 05/10/25 10:20 Radiology Impressions Cervical Spine CT 05/10/25 09:18 IMPRESSION: 1. No acute cervical spine fracture. 2. Moderate degenerative disc disease at C4-5 and C5-6. 3. Multilevel mild central and mild to moderate bilateral foraminal stenosis as above. Head CT 05/10/25 09:18 IMPRESSION: 1. No acute intracranial hemorrhage or edema. 2. Moderate to severe cerebral and cerebellar atrophy and mild small vessel disease. 3. No skull fracture or scalp hematoma. Chest X-Ray 05/10/25 09:19 IMPRESSION: No acute abnormality identified. Laboratory Results WBC 7.61 10^3/uL (3.29-11.43) 05/10/25 10:20 RBC 3.96 10^6/uL (3.85-5.65) 05/10/25 10:20 Hgb 11.30 g/dL (11.27-16.99) 05/10/25 10:20 Hct 35.7 % (36-47) L 05/10/25 10:20 MCV 90.2 fl (85-98) 05/10/25 10:20 MCH 28.5 pg (27-33) 05/10/25 10:20 MCHC 31.7 g/dL (30-55) 05/10/25 10:20 RDW 15.2 % (12.1-15.1) H 05/10/25 10:20 Plt Count 200 10^3/cmm (157-399) 05/10/25 10:20 MPV 8.7 fL (7.4-10.4) 05/10/25 10:20 Neut % (Auto) 73.6 % 05/10/25 10:20 Lymph % (Auto) 13.1 % 05/10/25 10:20 [place] % (Auto) 10.4 % 05/10/25 10:20 Eos % (Auto) 2.1 % 05/10/25 10:20 Baso % (Auto) 0.4 % 05/10/25 10:20 Neut # (Auto) 5.60 10^3/uL (1.8-7.7) 05/10/25 10:20 Lymph # (Auto) 1.0 10^3/uL (0.8-4.8) 05/10/25 10:20 [place] # (Auto) 0.8 10^3/uL (0.2-0.9) 05/10/25 10:20 Eos # (Auto) 0.2 10^3/uL (0.0-0.8) 05/10/25 10:20 Baso # (Auto) 0.0 10^3/uL (0.0-0.1) 05/10/25 10:20 Nucleated RBC % (auto) 0 % 05/10/25 10:20 Nucleated RBCs # 0.0 /100WBC 05/10/25 10:20 Sodium 141 mmol/L (136-145) 05/10/25 10:20 Potassium 4.0 mmol/L (3.5-5.1) 05/10/25 10:20 Chloride 105 mmol/L (98-107) 05/10/25 10:20 Carbon Dioxide 25 mmol/L (22-29) 05/10/25 10:20 Anion Gap 15.0 (5-19) 05/10/25 10:20 BUN 11 mg/dL (8-23) 05/10/25 10:20 Creatinine 0.8 mg/dL (0.5-0.9) 05/10/25 10:20 GFR Calculation Not Reportable 05/10/25 10:20 Glucose 90 mg/dL (65-115) 05/10/25 10:20 Calculated Osmolality 291 mOsm/kg (285-295) 05/10/25 10:20 Calcium 8.5 mg/dL (8.5-10.5) 05/10/25 10:20 Total Bilirubin 0.3 mg/dL (0.15-1.2) 05/10/25 10:20 AST 29 U/L (0-32) 05/10/25 10:20 ALT 16 U/L (0-33) 05/10/25 10:20 Alkaline Phosphatase 105 U/L (35-105) 05/10/25 10:20 Total Protein 6.3 g/dL (6.6-8.7) L 05/10/25 10:20 Albumin 3.4 g/dL (3.5-5.2) L 05/10/25 10:20 Globulin 2.9 g/dL (1.3-4.6) 05/10/25 10:20 Urine Color Yellow (Yellow) 05/10/25 11:09 Urine Appearance Clear (CLEAR) 05/10/25 11:09 Urine pH 7.0 (5-7) 05/10/25 11:09 Ur Specific [place] 1.014 (1.005-1.030) 05/10/25 11:09 Urine Protein Negative (Negative) 05/10/25 11:09 Urine Glucose (UA) Negative (Normal) 05/10/25 11:09 Urine Ketones Negative (Negative) 05/10/25 11:09 Urine Blood Negative (Negative) 05/10/25 11:09 Urine Nitrate Negative (Negative) 05/10/25 11:09 Urine Bilirubin Negative (Negative) 05/10/25 11:09 Urine Urobilinogen 1.0 mg/dL (Negative) 05/10/25 11:09 Ur Leukocyte Esterase Negative (Negative) 05/10/25 11:09 Urine RBC 0-2 /hpf (0-2) 05/10/25 11:09 Urine WBC 0-5 /hpf (0-5) 05/10/25 11:09 Ur Squamous Epith Cells 0-5 /hpf (0-5) 05/10/25 11:09 Calcium Oxalate Crystal 5-10 /hpf H 05/10/25 11:09 Amorphous Sediment Not Reportable 05/10/25 11:09 Urine Bacteria None seen /hpf (NONE) 05/10/25 11:09 Hyaline Casts 0-4 /lpf H 05/10/25 11:09 All radiology interpretation(s) finalized by discharge EKG Data EKG 1: Interpretation: EKG 05/10/2025 9:30 AM normal sinus rhythm with a rate of 60 NH interval 159 QTc [address] changes no T wave inversions. No previous EKGs for comparison Discharge Plan Discharge Patient Disposition: Home Clinical Impression: Closed head injury, Fall, Dementia Condition: Stable Prescriptions: No Action amlodipine 2.5 mg Tablet 2.5 mg PO DAILY mirtazapine 15 mg Tablet 15 mg PO QPM memantine 5 mg Tablet 5 mg PO BID Rx Instructions: take with a 10mg ondansetron 4 mg tablet,disintegrating 4 mg PO Q6H PRN (Reason: nausea and vomiting) Qty: 14 0RF memantine 10 mg tablet 10 mg PO BID Rx Instructions: Take with a 5 mg zaleplon 5 mg capsule 5 mg PO BEDTIME PRN (Reason: Insomnia) risperidone 1 mg tablet 1 mg PO BEDTIME risperidone 0.5 mg tablet 0.5 mg PO BID Discharge Orders: Discharge ED (Routine); Ordered 05/10/25 Ordered By: David Dowd Discharge Diet: Usual diet Discharge Activity: Resume usual activity Patient Instructions: Opioid Safety, Pain Management, Patient Portal & Jordi Instructions Activity Restrictions/Additional Instructions: Thank you for choosing [facility] for your healthcare needs today. It is very important that you follow up as instructed or that you return to the Emergency Department should you have concerns or if your condition changes or worsens in any way. 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
--- NOTE | 2025-05-10 09:18 | CT_ITS ---
WS: [id number] CT HEAD NONCONTRAST HISTORY: trauma TECHNIQUE: Contiguous axial imaging performed through the brain. Bone and soft tissue windows. Sagittal and coronal reformats reviewed. All CT scans at [facility] use at least one of these dose optimization techniques: automated exposure control; mA and/or kV adjustment per patient size (includes targeted exams where dose is matched to clinical indication); or iterative reconstruction. DLP: 1325.03 mGy.cm COMPARISON: None available. No acute intracranial hemorrhage, midline shift or mass effect. Moderate to severe cerebral and cerebellar atrophy. Atrophy is symmetric. Mild small vessel ischemic disease. No prior infarct. Ventricles: Mild dilatation of the ventricular system due to mild atrophy. No inferior displacement the cerebellar tonsils. Paranasal sinuses: Mucoperiosteal thickening in the paranasal sinuses. No air- fluid levels. Most significant mucoperiosteal disease is in the ethmoid and RIGHT frontal sinus. Mastoid air cells: Well pneumatized. Calvarium and scalp: Skull is intact with no soft tissue edema or swelling. CT/CT head wo con* [id number] IMPRESSION: 1. No acute intracranial hemorrhage or edema. 2. Moderate to severe cerebral and cerebellar atrophy and mild small vessel di sease. 3. No skull fracture or scalp hematoma.
--- NOTE | 2025-05-10 09:18 | CT_ITS ---
WS: [id number] CT CERVICAL SPINE HISTORY: trauma TECHNIQUE: Contiguous 2.0 mm axial imaging performed through the entire cervical spine. Sagittal and coronal reformats also performed. All CT scans at [facility] use at least one of these dose optimization techniques: automated exposure control; mA and/or kV adjustment per patient size (includes targeted exams where dose is matched to clinical indication); or iterative reconstruction. DLP: 1325.03 mGy.cm COMPARISON: None available. Mild curvature cervical spine. 2 mm retrolisthesis of C4. Moderate disc space narrowing at C4-5 and C5-6. No acute fractures. Craniocervical junction is normal. Lateral masses of C1 and C2 are aligned. The odontoid process is intact. C2-C3: Normal. C3-C4: Mild osteophytic ridging and bilateral facet arthritis. Moderate LEFT foraminal stenosis. C4-C5: Osteophytic ridging. Mild central with moderate bilateral foraminal stenosis. C5-C6: Osteophytic ridging with mild central and moderate bilateral foraminal stenosis. Bilateral facet arthritis. C6-C7: Osteophytic ridging with moderate bilateral facet arthritis. Mild bilateral foraminal stenosis. C7-T1: Normal. Soft tissues are normal. Lung apices are clear. CT/CT cervical spin wo con* [id number] IMPRESSION: 1. No acute cervical spine fracture. 2. Moderate degenerative disc disease at C4-5 and C5-6. 3. Multilevel mild central and mild to moderate bilateral foraminal stenosis a s above.
--- NOTE | 2025-05-10 09:18 | ECG_ITS ---
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 Measurements Intervals [place] Rate: 60 P: 56 [place]: 159 QRS: 57 QRSD: 76 T: 64 QT: 398 QTc: 400 Interpretive Statements SINUS RHYTHM No previous ECG available for comparison Electronically Signed On 05-11-2025 09:03:38 CDT by Esvin Gillette M.D. [email or web address] [id number]
--- NOTE | 2025-05-10 09:19 | XRR_ITS ---
PROCEDURE INFORMATION: Exam: XR Chest Exam date and time: 05/10/2025 9:20 AM Age: 79 years old Clinical indication: Injury or trauma; Fall; Blunt trauma (contusions or hematomas); Additional info: Wheeze TECHNIQUE: Imaging protocol: Radiologic exam of the chest. Views: 1 view. COMPARISON: CT abdomen pelvis w con* [id number] 01/08/2025 6:18 AM FINDINGS: Lungs: Unremarkable. No consolidation. Pleural spaces: Unremarkable. No pleural effusion. No pneumothorax. Heart/Mediastinum: Unremarkable. No cardiomegaly. Vasculature: There is tortuosity of the thoracic aorta. Bones/joints: Degenerative changes of the spine are present. No acute fractures are identified. There is osteopenia. XR/XR chest 1V portable [id number] IMPRESSION: No acute abnormality identified.
[2025-05-10 10:29] LABS: Hematocrit 35.7 % (36-47); Hemoglobin 11.30 g/dL (11.27-16.99); Mean Corpuscular HGB Conc 31.7 g/dL (30-55); Mean Corpuscular Hemoglobin 28.5 pg (27-33); Mean Corpuscular Volume 90.2 fl (85-98); Nucleated Red Blood Cells % 0 %; Platelet Count 200 10^3/cmm (157-399); Red Blood Count 3.96 10^6/uL (3.85-5.65); White Blood Count 7.61 10^3/uL (3.29-11.43)
[2025-05-10 10:57] LABS: Alanine Aminotransferase 16 U/L (0-33); Albumin Level 3.4 g/dL (3.5-5.2); Alkaline Phosphatase 105 U/L (35-105); Anion Gap 15.0 (5-19); Aspartate Amino Transferase 29 U/L (0-32); Blood Urea Nitrogen 11 mg/dL (8-23); Calcium 8.5 mg/dL (8.5-10.5); Carbon Dioxide 25 mmol/L (22-29); Chloride 105 mmol/L (98-107); Globulin 2.9 g/dL (1.3-4.6); Glucose 90 mg/dL (65-115); Osmolality Calculated 291 mOsm/kg (285-295); Potassium 4.0 mmol/L (3.5-5.1); Sodium 141 mmol/L (136-145); Total Protein 6.3 g/dL (6.6-8.7)
[2025-05-10 11:12] VITALS: BP 150/76; PULSE 61; O2SAT 98
[2025-05-10 11:20] LABS: Glucose Urine UA Negative (Normal); Nitrate Urine Negative (Negative); Specific Gravity, Urine 1.014 (1.005-1.030)
[2025-05-10 11:25] LABS: Add Urine Microscopic? YES
[2025-05-10 12:09] LABS: UA Slide Review UA Slide Review Perf
[2025-05-10 12:51] VITALS: BP 150/76; PULSE 61; O2SAT 98
== END 2025-05-10 12:55 | disposition home or self-care (01) ==
PROVIDERS: Emergency Provider Family Medicine
DX: S09.8XXA Other specified injuries of head, initial encounter (principal); F03.90 Unspecified dementia, unspecified severity, without behavioral disturbance, psychotic disturbance, mood disturbance, and anxiety; W01.190A Fall on same level from slipping, tripping and stumbling with subsequent striking against furniture, initial encounter
CPT/HCPCS: 36415; 70450; 71045; 72125; 80053; 81001; 85025; 93005; 99285

== ENCOUNTER 2025-05-25 10:45 | Outpatient (CLI) | payer MEDICARE, SELFPAY ==
[2025-05-25 10:55] LABS: Glucose Urine UA Negative (Normal); Nitrate Urine Negative (Negative); Specific Gravity, Urine 1.013 (1.005-1.030)
[2025-05-25 11:00] LABS: Add Urine Microscopic? YES
== END 2025-05-25 10:46 | disposition home or self-care (01) ==
PROVIDERS: Visit Provider Family Medicine
DX: N39.0 Urinary tract infection, site not specified (principal)
CPT/HCPCS: 81001; 87077; 87086; 87186

== ENCOUNTER 2025-05-25 15:19 | Emergency (ER) | payer MEDICARE, SELFPAY ==
--- OUTSIDE RECORDS SUMMARY | 2019-09-12 05:08 | XMS_ITS | Continuity of Care Document ---
Author Organization [facility] Address [address] [place] [address] Phone Care Team Providers Care Wallet Assembler Name Role Phone Juan Pablo Hu MD Unavailable Unavailable Allergies, Adverse Reactions, Alerts Substance Reaction Status Criticality cephalexin Active No Information Medications Medication Instructions Dosage Effective Dates (start - stop) Status Comments losartan 50 mg tablet take 1 tablet by oral route every day 50 MG - Active losartan 50 mg tablet take 1 tablet by oral route every day 50 MG - No Longer Active Procedures Procedure Date EKG, routine Venipuncture Office/outpatient visit,[facility], [place] 2018 Most Recent Systolic BP W/in 12 Mos >/= 140 mm Hg Most Recent Diastolic BP W/in 12 Mos 80- 89 mm Hg BODY MASS INDEX DOCD [place] [facility] [place] Most Recent Systolic BP W/in 12 Mos >/= 140 mm Hg Most Recent Diastolic BP Within 12 Mos > /= 90mm Hg BODY MASS INDEX DOCD Advance Directives Directive Yes / No Effective Date File Name No Information Encounters Encounter Description Practice Location Reason(s) For Visit Diagnoses Date Provider Providers Copied on Encounter [facility], [address], [place], [place], [id number], tel:[phone] [facility] No Information 9 Fritz Almeida. [address], [address], [place], [address], [place]. tel:[phone] Office/outpat ient visit,[facility], [address], [place], [id number], tel:[phone] [facility] Follow Up of htn (chief complaint) HTNEncounter for routine laboratory testingEncounter for exam of blood pressure w/o abnormal findingsBody mass index (BMI) 22.0-22.9, adult 9 Anirudh Jensen. [address], [address], [place], [place], [id number] , [place]. tel:[phone] Referring Provider: Efrem Oleary, [address] [place] [address], [address] . tel:[phone] Office/outpat ient visit,[facility], [address], [place], [place], [id number], [place] tel:[phone] [facility] htn (chief complaint) HTNEncounter for exam of blood pressure w/o abnormal findingsBody mass index (BMI) 22.0-22.9, adult 9 Anirudh Jensen. [address], [address], [place], [place], [id number] , [place]. tel:[phone] Referring Provider: Efrem Oleary, [address] [place] [address], [address] . tel:[phone] Family History Family Member Type Diagnosis Age At Onset No Information Payers Payer name Insurance type Covered libertarian ID Authoriza tidaniel(s) Medicare Chiquita PEREZ [id number] [facility] CI [id number] Social History Type Description Quantity Date Captured Comments Sex Female Smoking Status No Information Chief Complaint And Reason For Visit No Information Reason For Referral Reason For Referral No Information History Of Present Illness Encounter Date Complaint History Of Prese nt Illness Follow Up of htn (comments) Come s back for HTN follow up; was put on Losartan 50 mg , starting last night; feeling better. BP today is 140/84; no dizziness, no headache nor chest pain. Pt will have a general lab. testing for HTN work-up.. Follow Up of htn htn (comments) A new pt, comes in with , that she found her B.P. has been high for one week. She used to monitor her BP at home; and SBP used to be around 140-150; and these few days, the SBP goes up to 170-190 ranged. Subjectively, she feels fine. She denies of having had headache, chest pain, or S.O.B.. She has no smoking and no drug abuse; and no HLD or Cardiac Hx. per pt. She has been healthy, and not seen MD for long time. htn Functional Status Date Functional Assessmen t No Information Instructions Date Instruction Additional Infor maggy New Dx.;B.P RECHECK - 190/100 KARLEE; 200/190 LAS; Dx. and plans discussed in detail;Clonidine 0.1 mg p.o. given at 12:55 p.m.;bp AT 1:33 P.M. 140/100;Low and low fat diet; exercise; maintaining ideal body weight;Monitoring BP daily; and report to PMD or to ER if BP not in control; S.BP over 180, or DBP over 120, Cardiovascular complications of HTN discussed;Lab. in a.m. - CBC, CMP, LIPID PROFILE, TSH; U/A, and EKG;Take Rx. Losartan 50 mg daily as directed; side effects cautioned;RTC prn; and see PMD tomorrow follow up or sooner if worse; or to ER if having chest pain, palpitation, or severe headache. Related to HTN Assessments Type Assessment Date No Information Patient Care Teams Name Effective Dates (start - stop) Status Members No Information
--- OUTSIDE RECORDS SUMMARY | 2024-12-01 18:00 | XMS_ITS | Continuity of Care Document ---
Author Organization [facility] Address [address] [place] [address] Phone Care Team Providers Care Sed Middle [employer] Teacher Name Role Phone Emigdio GARCIA MD, Nito Unavailable Unavailab le Procedures Procedure Date TTE W/DOPPLER COMPLETE Advance Directives Directive Yes / No Effective Date File Name No Information Encounters Encounter Description Practice Location Reason(s) For Visit Diagnoses Date Provider Providers [facility]ied [facility]counter [facility], [place], [address], tel:[phone] [facility] No Information Emigdio Beauchamp. [address], [address], [place]. tel:[phone] Referring Provider: Nito Beal MD, [address] [facility] [address], [place], [address]. tel:[phone] Family History Family Member Type Diagnosis Age At Onset No Information Payers Payer name Insurance type Covered democrat ID Iron mace(s) Romyholly JE-Part B ANA [id number] [place] [id number] Social History Type Description Quantity Date Captured Comments Sex Female Smoking Status No Information Chief Complaint And Reason For Visit No Information Reason For Referral Reason For Referral No Information History Of Present Illness Encounter Date Complaint History Of Prese nt Illness No Information Functional Status Date Functional Assessmen t No Information Instructions Date Instruction Additional Infor mation No Information Assessments Type Assessment Date No Information Patient Care Teams Name Effective Dates (start - stop) Status Members No Information
--- OUTSIDE RECORDS SUMMARY | 2025-04-10 04:00 | XMS_ITS ---
Author Organization [facility] Address [address] [place] [address] Care Team Providers Care Customer Engineering Specialist Name Role Phone Wilmer GARCIA, Edd Primary Care Provider Brenna Padron Unavailable [phone] REASON FOR VISIT PESSARY Encounters Encounter Location Date Provider Diagnosis [address] [place] [address] 04/10/2025 Brenna Duncan Plan Of Treatment Next Appt Details Provider Name:Brenna Mcgrath ers, 07/03/2025 11:00:00 AM, [address] [place] [address] Dr, [address], [place], [address], Progress Notes * DAMION JOHNSONDOB:[birth year] (79 yo F)Acc No.[id number]:04/10/2025 Patient: KAR GONZALEZELA Provider: Obdulio Duncan MD :1945 A ge:79 Y S ex:Female Date:04/10/2025 Address:[address] [place], [place] [phone] Pcp:Edd Guillen MD Subjective: * Chief Complaints: * P ESSARY * Electronic signature of Linda Duncan MD on 05/25/2025 at 03:24 PM CDT Sign off status: Pending * Provider: Obdulio Duncan MD Date: 0 04/10/2025 Generated for Printi ng/Faxing/eTransmitting on: 0 05/25/2025 03:24 PM CDT
--- OUTSIDE RECORDS SUMMARY | 2025-05-01 04:30 | XMS_ITS ---
Author Organization [facility] Address [address] [place] [address] Care Team Providers Care Bingo Caller Name Role Phone Wilmer GARCIA, Edd Primary Care Provider Brenna Padron Unavailable [phone] REASON FOR VISIT consult Encounters Encounter Location Date Provider Diagnosis [address] [place] [address] 05/01/2025 Brenna Duncan Plan Of Treatment Next Appt Details Provider Name:Brenna Mcgrath ers, 07/03/2025 11:00:00 AM, [address] [place] [address] Dr, [address], [place], [address], Progress Notes * JAIME JOHNSONB:[birth year] (79 yo F)Acc No.[id number]:05/01/2025 Patient: Sol MILTONMUNIRA DAMION Provider: Obdulio Duncan MD :1945 A ge:79 Y S ex:Female Date:05/01/2025 Address:[address] [place], [place] [phone] Pcp:Edd Guillen MD Subjective: * Chief Complaints: * C onsult * Electronic signature of Linda Duncan MD on 05/25/2025 at 03:24 PM CDT Sign off status: Pending * Provider: Obdulio Duncan MD Date: 05/01/2025 Generated for Printi ng/Faxing/eTransmitting on: 0 05/25/2025 03:24 PM CDT
[2025-05-25] VITALS (45 sets, daily range): BP systolic 125–169; BP diastolic 70–103; PULSE 68–90; RESP 11–19; TEMP 37.1; O2SAT 95–99
--- OUTSIDE RECORDS SUMMARY | 2025-05-25 15:25 | XMS_ITS | Patient Health Record ---
Author Organization [facility] Address [address] [place] [address] Care Team Providers Care Rate Marker Name Role Phone Edd Guillen MD Primary Care Provider Unavaila ble Brenna Duncan Unavailable [phone] Allergies No Known Allergies Reason For Referral Reason PROLAPSED CERVIX u nable to accept. 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 Referral Priority Routine Medications Medication SIG (Take, [...] Status W/U Status Risk Notes Problem Insomnia (510836475) Insomnia (G47.00) Active confirmed Problem Atrophy of vagina (584487923) Vaginal atrophy (N95.2) Active confirmed Problem Complete uterine prolapse (33992190) Complete uterine prolapse (N81.3) Active confirmed Problem Dementia with behavioral disturbance (disorder) (4798811422903) Unspecified dementia, unspecified severity, with other behavioral disturbance (F03.918) Active confirmed Problem Unspecified dementia, severe, with other behavioral disturbance (F03.C18) Active confirmed Problem Incomplete uterovaginal prolapse (886568849) Cervical prolapse (N81.2) Active confirmed Vital Signs Heart Rate 71 /min 04/03/2025 Respiratory Rate 18 /min 04/03/2025 Oximetry 96 % 04/03/2025 Blood pressure diastolic 70 mm Hg 04/03/2025 Weight-kg 72.9 kg 04/03/2025 Blood pressure systolic 110 mm Hg 04/03/2025 Weight 160.72 lbs 04/03/2025 Encounters Encounter Location Date Provider Diagnosis [address] [place] [address] 04/03/2025 Brenna Duncan Complete uterine prolapse N81.3 and Vaginal atrophy N95.[address] [place] [address] 02/21/2025 Brenna Duncan Complete uterine prolapse N81.3 and Vaginal atrophy N95.[address] [place] [address] 01/09/2025 Brenna Duncan [address] [place] [address] 01/02/2025 Brenna Duncan [address] [place] [address] 03/14/2025 Brenna Duncan [address] [place] [address] 03/09/2025 Brenna Duncan [address] [place] [address] 03/08/2025 Brenna Duncan [address] [place] [address] 01/23/2025 Brenna Duncan Assessments Encounter Date Diagnosis (ICD Code) Assessment Notes Treatment Notes Treatment Clinical Notes Section Notes 02/21/2025 Complete uterine prolapse (ICD-10 - N81.3) 64,mm gellhorn placed, really needs 70mm, dont have one in clinic, will order and call when arrives start estrogen I will care for the pessary 02/21/2025 Vaginal atrophy (ICD-10 - N95.2) start vaginal estorgen 04/03/2025 Complete uterine prolapse (ICD-10 - N81.3) 64 mm gellhorn removed, cleaned and replaced today Continue estrogenI will care for the pessary RTC 3 months for pessary care 04/03/2025 Vaginal atrophy (ICD-10 - N95.2) continue estrogen Plan Of Treatment Next Appt Details Provider Name:Brenna cMgrath ers, 07/03/2025 11:00:00 AM, [address] [place] [address] , [address], [place], [address], Insurance Providers Payer Name Payer Address Payer Phone Subscriber Number Group Number Insured Name Patient Relationship to Insured Coverage Start Date Coverage End Date [place] Medicare [address] [place] [phone] [id number] DAMION JOHNSON Self - patient is the insured [facility] Medicare Supplement [address] [place] [phone] [id number] DAMION JOHNSON Self - patient is the insured Medical (General) History Medical History History ICD Code anxiety depression hypertension Alzheimer's
--- NOTE | 2025-05-25 15:29 | XRR_ITS ---
PROCEDURE INFORMATION: Exam: XR Chest Exam date and time: 05/25/2025 3:38 PM Age: 79 years old Clinical indication: Other: AMS TECHNIQUE: Imaging protocol: Radiologic exam of the chest. Views: 1 view. COMPARISON: CR XR chest 1V portable [id number] 05/10/2025 9:20 AM FINDINGS: Lungs: Minimal atelectasis at the left lung base. Pleural spaces: Unremarkable. No pleural effusion. No pneumothorax. Heart/Mediastinum: Unremarkable. No cardiomegaly. Bones/joints: Unremarkable. XR/XR chest 1V portable [id number] IMPRESSION: Minimal atelectasis at the left base.
--- NOTE | 2025-05-25 15:29 | ECG_ITS ---
[facility] Date: 2025-05-25 Pat Name: Tracy Jones Department: Room: Gender: Female Correspondence Clerk: : 1945 Requested By: Crow Renae Order Number: [id number] Che MD: PAMELA RIGGINS Measurements Intervals [place] Rate: 70 P: 59 [place]: 146 QRS: 63 QRSD: 79 T: 76 QT: 379 QTc: 409 Interpretive Statements SINUS RHYTHM WITH OCCASIONAL SUPRAVENTRICULAR PREMATURE COMPLEXES Compared to ECG 05/10/2025 09:30:19 No significant changes Electronically Signed On 05-30-2025 20:00:58 CDT by PAMELA RIGGINS [email or web address] [id number]
--- NOTE | 2025-05-25 15:39 | CTR_ITS ---
PROCEDURE INFORMATION: Exam: CT Head Without Contrast Exam date and time: 05/25/2025 4:00 PM Age: 79 years old Clinical indication: Altered mental status/memory loss; Additional info: AMS TECHNIQUE: Imaging protocol: Computed tomography of the head without contrast. Radiation optimization: All CT scans at this facility use at least one of these dose optimization techniques: automated exposure control; mA and/or kV adjustment per patient size (includes targeted exams where dose is matched to clinical indication); or iterative reconstruction. COMPARISON: CT head wo con* [id number] 05/10/2025 10:34 AM RADIATION DOSE METRICS: Total DLP (mGy-cm): 1045.14 FINDINGS: Brain: Normal. No hemorrhage. Unremarkable white matter. No mass effect. Cerebral ventricles: No ventriculomegaly. Paranasal sinuses: Visualized sinuses are unremarkable. No fluid levels. Mastoid air cells: Visualized mastoid air cells are well aerated. Bones: Unremarkable. No acute fracture. Soft tissues: Unremarkable. CT/CT head wo con* [id number] IMPRESSION: No acute intracranial abnormality.
--- NOTE | 2025-05-25 15:44 | ED_ITS ---
HPI - Altered Mental Status 2 General: Chief Complaint: Altered Mental Status Stated Complaint: ams Time Seen by Provider: 05/25/25 15:20 Source: EMS Mode of arrival: EMS Limitations: altered mental status History of Present Illness: Patient is an 79-year-old female with past medical history of dementia who is brought into the emergency department by EMS from care home due to altered mental status. Patient normally is ANO x 3 though with severe memory deficits, however it is reported that she has not ambulated in 24 hours due to progressive weakness and has become less responsive. FPC is also noted a yellowing to her skin. Only recent new medication is Sonata for insomnia. She is unable to provide any history, though is responsive to verbal commands. She is able to state her name, cannot report or date. She also reports that she knows she is in the hospital. Other than the worsening lethargy, no fevers, shortness of breath or respiratory distress, or other symptoms noted. She was recently tested for UTI by care home staff which was negative. Notably drowsy at this time but her vitals are unremarkable, afebrile at this time. Normally patient able to walk around and is very interactive with people. MD complaint: altered mental status, decreased responsiveness and weakness Onset (ago): day(s) Related Data Home Medications ?Medication ?Instructions ?Recorded ?Confirmed amlodipine 2.5 mg tablet 2.5 mg PO DAILY 12/27/24 memantine 5 mg tablet 5 mg PO BID 12/27/24 5 mirtazapine 15 mg tablet 15 mg PO QPM 12/27/24 memantine 10 mg tablet 10 mg PO BID 05/10/25 risperidone 0.5 mg tablet 0.5 mg PO BID 05/10/2505/10 risperidone 1 mg tablet 1 mg PO BEDTIME 05/10/25 Held on 05/25/25. Instructions: Resume on 05/25/25. Please give 0.5 mg at bedtime instead of 1.0 mg. May continue to give 0.5 mg in the morning. zaleplon 5 mg capsule 5 mg PO BEDTIME PRN Insomnia 05/10/25 05/10/25 Previous Rx's ?Medication ?Instructions ?Recorded ondansetron 4 mg disintegrating 4 mg PO Q6H PRN nausea and 01/08/25 tablet vomiting #14 tabs Allergies Allergy/AdvReac Type Severity Reaction Status Date / Time No Known Allergies Allergy Verified 05/25/25 15:38 Review of Systems 2 General: Reports: ROS unobtainable due to mental status Physical Exam 2 Const: EXAM LIMITATIONS: altered mental status GENERAL APPEARANCE: l ethargic ORIENTATION/CONSCIOUSNESS: Yes oriented to person, Yes oriented to place and Yes lethargic; not oriented to time HENMT: COMMON NORMALS: normocephalic and atraumatic HEAD & SCALP: n ormocephalic and atraumatic FACE & SINUS: normal facial exam OTHER: Dry oral mucosa Eye: OTHER: PERRLA, though slow to react. Neck/C-Spine: COMMON NORMALS: full ROM and no lymphadenopathy Chest: COMMONS NORMALS: normal inspection of the chest and normal palpation of entire chest wall Resp: COMMON NORMALS: normal respiratory effort, No retractions, No use of accessory muscles and clear to auscultation bilaterally AUSCULTATION: clear to auscultation bilaterally Cardio: COMMON NORMALS: regular rate, regular rhythm, S1 normal heart sound present, S2 normal heart sound present and No murmurs present (Cardio) RATE: regular rate RHYTHM: regular rhythm HEART SOUNDS: S1 normal heart sound present and S2 normal heart sound present GI: COMMON NORMALS: Soft to palpation and non-tender PALPATION: Yes Soft to palpation Extremity: COMMON NORMALS: normal to inspection, full ROM, capillary refill normal, no joint enlargement and no pedal edema Neuro: SANDRA COMA SCALE: document GCS findings Sandra coma scale eye opening: To sound [place] coma scale verbal response: Words [place] coma scale motor response: Obey commands [place] coma scale total score: 12 COMMON NORMALS: moves all extremities SENSORIUM/ORIENTATION: Yes oriented to person, Yes oriented to place, No oriented to time and Yes lethargic SPEECH: abnormal speech Details: garbled GAIT: Yes Unable to assess gait MOTOR EXAM: no tremor noted, no asterixis, Motor fasciculations not present, Normal motor muscle tone present throughout and Motor abnormalities not present Skin: COMMON NORMALS: no rashes or lesions noted and no jaundice GENERAL SKIN EXAM: no rashes or lesions noted Course 2 Vital Signs: Vital signs: Vital Signs Temperature 98.7 F 05/25/25 15:30 Pulse Rate 74 05/25/25 17:55 Respiratory Rate 12 05/25/25 17:55 Blood Pressure 144/79 05/25/25 17:55 Pulse Oximetry 97 05/25/25 17:55 Oxygen Delivery Me thod Room Air 05/25/25 15:30 MDM - Altered Mental Status Medical Decision Making Patient presented by ambulance from care home, due to couple of days of worsening altered mental status and activity change, normally is active and walking around but has been bedridden since with no appetite. Appears to be recent medication addition of Sonata, however that this is unconfirmed with care home but reviewed on patient's med list it was started on 05/07. On exam patient was responsive to verbal stimuli, was able to report to me her name and where she is but unable to tell me the date. Reportedly she is alert and oriented x 3, though with memory deficits. Essentially review of systems was unobtainable, son had arrived sometime later and confirmed to me she is normally active and that this is unusual. There were no toxic signs on exam, normal cardiopulmonary auscultation and she did not appear to be encephalopathic. Chest x-ray was unremarkable, all of her labs were normal including a normal straight cath urinalysis for any UTI. Head CT unremarkable. I had spoken to hospitalist, Dr. Mendez, who kindly visited with the patient and family in the emergency department and agrees that we can attempt to alter medications, specifically her risperidone, and have her monitored back at assisted facility. With any worsening she is to return. However we will have her risperidone taken 0.5 mg in the morning and evening, as opposed to taking the 4 mg at night. On recheck, patient is spontaneously opening her eyes and is much more responsive to me. Overall has been clinically stable here in the ED, there are no concerns for infectious etiology at this time or intracranial abnormality, and son agrees with plan for discharge home. Lab Data 05/25/25 15:00 05/25/25 15:00 Radiology Impressions Chest X-Ray 05/25/25 15:29 IMPRESSION: Minimal atelectasis at the left base. Head CT 05/25/25 15:39 IMPRESSION: No acute intracranial abnormality. Laboratory Results WBC 10.20 10^3/uL (3.29-11.43) 05/25/25 15:00 RBC 4.39 10^6/uL (3.85-5.65) 05/25/25 15:00 Hgb 12.70 g/dL (11.27-16.99) 05/25/25 15:00 Hct 41.3 % (36-47) 05/25/25 15:00 MCV 94.1 fl (85-98) 05/25/25 15:00 MCH 28.9 pg (27-33) 05/25/25 15:00 MCHC 30.8 g/dL (30-55) 05/25/25 15:00 RDW 15.2 % (12.1-15.1) H 05/25/25 15:00 Plt Count 242 10^3/cmm (157-399) 05/25/25 15:00 MPV 9.2 fL (7.4-10.4) 05/25/25 15:00 Neut % (Auto) 78.6 % 05/25/25 15:00 Lymph % (Auto) 9.2 % 05/25/25 15:00 Braxton % (Auto) 10.6 % 05/25/25 15:00 Eos % (Auto) 0.7 % 05/25/25 15:00 Baso % (Auto) 0.3 % 05/25/25 15:00 Neut # (Auto) 8.02 10^3/uL (1.8-7.7) H 05/25/25 15:00 Lymph # (Auto) 0.9 10^3/uL (0.8-4.8) 05/25/25 15:00 Braxton # (Auto) 1.1 10^3/uL (0.2-0.9) H 05/25/25 15:00 Eos # (Auto) 0.1 10^3/uL (0.0-0.8) 05/25/25 15:00 Baso # (Auto) 0.0 10^3/uL (0.0-0.1) 05/25/25 15:00 Nucleated RBC % (auto) 0 % 05/25/25 15:00 Nucleated RBCs # 0.0 /100WBC 05/25/25 15:00 Sodium 142 mmol/L (136-145) 05/25/25 15:00 Potassium 4.0 mmol/L (3.5-5.1) 05/25/25 15:00 Chloride 105 mmol/L (98-107) 05/25/25 15:00 Carbon Dioxide 22 mmol/L (22-29) 05/25/25 15:00 Anion Gap 19.0 (5-19) 05/25/25 15:00 BUN 11 mg/dL (8-23) 05/25/25 15:00 Creatinine 0.8 mg/dL (0.5-0.9) 05/25/25 15:00 GFR Calculation Not Reportable 05/25/25 15:00 Glucose 90 mg/dL (65-115) 05/25/25 15:00 POC Glucose 87 mg/dL (70-110) 05/25/25 16:30 Calculated Osmolality 293 mOsm/kg (285-295) 05/25/25 15:00 Calcium 8.7 mg/dL (8.5-10.5) 05/25/25 15:00 Total Bilirubin 0.4 mg/dL (0.15-1.2) 05/25/25 15:00 AST 36 U/L (0-32) H 05/25/25 15:00 ALT 16 U/L (0-33) 05/25/25 15:00 Alkaline Phosphatase 117 U/L (35-105) H 05/25/25 15:00 Total Protein 6.4 g/dL (6.6-8.7) L 05/25/25 15:00 Albumin 3.6 g/dL (3.5-5.2) 05/25/25 15:00 Globulin 2.8 g/dL (1.3-4.6) 05/25/25 15:00 Urine Color Yellow (Yellow) 05/25/25 16:38 Urine Appearance Clear (CLEAR) 05/25/25 16:38 Urine pH 6.5 (5-7) 05/25/25 16:38 Ur Specific [place] 1.023 (1.005-1.030) 05/25/25 16:38 Urine Protein Negative (Negative) 05/25/25 16:38 Urine Glucose (UA) Negative (Normal) 05/25/25 16:38 Urine Ketones Trace (Negative) 05/25/25 16:38 Urine Blood Negative (Negative) 05/25/25 16:38 Urine Nitrate Negative (Negative) 05/25/25 16:38 Urine Bilirubin Negative (Negative) 05/25/25 16:38 Urine Urobilinogen 1.0 mg/dL (Negative) 05/25/25 16:38 Ur Leukocyte Esterase Negative (Negative) 05/25/25 16:38 Urine RBC 0-2 /hpf (0-2) 05/25/25 16:38 Urine WBC 0-5 /hpf (0-5) 05/25/25 16:38 Ur Squamous Epith Cells 0-5 /hpf (0-5) 05/25/25 16:38 Amorphous Sediment Not Reportable 05/25/25 16:38 Urine Bacteria None seen /hpf (NONE) 05/25/25 16:38 Hyaline Casts 0.40 /lpf 05/25/25 16:38 Influenza A (PCR) Negative (Negative) 05/25/25 15:50 Influenza Type B (PCR) Negative (Negative) 05/25/25 15:50 RSV (PCR) Negative (Negative) 05/25/25 15:50 SARS-CoV-2 (PCR) Negative (Negative) 05/25/25 15:50 All radiology interpretation(s) finalized by discharge Discharge Plan Discharge Patient Disposition: Home Clinical Impression: Medication adverse effect Qualifiers: Encounter type: initial encounter Qualified Code(s): T50.905A - Adverse effect of unspecified drugs, medicaments and biological substances, initial encounter Condition: Stable Prescriptions: Held risperidone 1 mg tablet 1 mg PO BEDTIME Hold Instructions: Resume on 05/25/25. Please give 0.5 mg at bedtime instead of 1.0 mg. May continue to give 0.5 mg in the morning. No Action amlodipine 2.5 mg Tablet 2.5 mg PO DAILY mirtazapine 15 mg Tablet 15 mg PO QPM memantine 5 mg Tablet 5 mg PO BID Rx Instructions: take with a 10mg ondansetron 4 mg tablet,disintegrating 4 mg PO Q6H PRN (Reason: nausea and vomiting) Qty: 14 0RF memantine 10 mg tablet 10 mg PO BID Rx Instructions: Take with a 5 mg zaleplon 5 mg capsule 5 mg PO BEDTIME PRN (Reason: Insomnia) risperidone 0.5 mg tablet 0.5 mg PO BID Discharge Orders: Discharge ED (Routine); Ordered 05/25/25 Ordered By: Crow Tee Referrals: Edd Guillen MD [Primary Care Provider, Family Practice] Patient Instructions: Opioid Safety, Pain Management, Patient Portal & Jordi Instructions Activity Restrictions/Additional Instructions: Discharge Instructions: AMS & Polypharmacy Discharge Instructions for Correction Staff: Altered Mental Status, Polypharmacy, and Antipsychotic Adjustment Diagnosis and Hospital Course: 79-year-old female admitted from care home for acute altered mental status (AMS). Comprehensive workup including laboratory studies and neuroimaging was negative for acute medical or structural causes. The primary concern was polypharmacy, with particular attention to antipsychotic use. After multidisciplinary discussion with the hospitalist and family, the risperidone regimen has been adjusted to 0.5 mg PO BID (morning and night). The patient is otherwise stable for discharge. Medication Changes: - Risperidone: Adjusted to 0.5 mg PO in the morning and 0.5 mg PO at night. - This dose is consistent with the [place] [employer] (APA) recommendations to use the lowest effective dose in older adults with dementia- related behavioral disturbances, titrating only as clinically indicated and with close monitoring for side effects. - Review all other medications for ongoing necessity and potential drug-drug interactions, as polypharmacy increases the risk of delirium, falls, and other adverse outcomes in older adults. Monitoring and Follow-Up: - Monitor for improvement in mental status and behavioral symptoms over the next 48 hours. - Assess for potential adverse effects of risperidone, including but not limited to: - Sedation, extrapyramidal symptoms (tremor, rigidity, bradykinesia), gait disturbance, falls, orthostatic hypotension, cognitive worsening, cardiac arrhythmia, and signs of infection (e.g., pneumonia, UTI). - Document and communicate any observed side effects or lack of improvement to the primary care provider or consulting psychiatrist. Nonpharmacologic Interventions: - Continue to prioritize nonpharmacologic strategies for behavioral management, including environmental modifications, orientation cues, and staff education, as these are first-line for delirium and behavioral symptoms in dementia. - Engage family and direct care staff in ongoing monitoring and support, as multidisciplinary involvement facilitates safer deprescribing and management of psychotropic medications. Strict Return Precautions: Return the patient to the emergency department or contact the primary provider immediately if any of the following occur: - No improvement in mental status or behavioral symptoms within 48 hours of medication adjustment. - Worsening confusion, agitation, or new onset of hallucinations or delusions. - New or worsening sedation, unresponsiveness, or decreased oral intake. - New focal neurological deficits, seizure activity, or sudden decline in function. - Evidence of extrapyramidal symptoms (e.g., new tremor, rigidity, abnormal movements). - New or recurrent falls. - Signs of infection (fever, cough, shortness of breath, dysuria). - Any other acute change in condition that is concerning to staff or family. Additional Notes: - The APA recommends that if there is no clinically significant response to antipsychotic therapy after a 4-week trial at an adequate dose, the medication should be tapered and withdrawn. - For patients who respond, periodic attempts at dose reduction and discontinuation should be considered, with shared decision-making involving the family and care team. - Polypharmacy should be regularly reviewed, and deprescribing should be pursued when possible, with a focus on patient safety and quality of life. Contact Information: For questions or concerns, contact the discharging hospitalist or the patient?s primary care provider. Print Language: [place] Coding Level of Care Code ED Airplane Cover Maker for Munira Lin
[2025-05-25 15:45] LABS: Hematocrit 41.3 % (36-47); Hemoglobin 12.70 g/dL (11.27-16.99); Mean Corpuscular HGB Conc 30.8 g/dL (30-55); Mean Corpuscular Hemoglobin 28.9 pg (27-33); Mean Corpuscular Volume 94.1 fl (85-98); Nucleated Red Blood Cells % 0 %; Platelet Count 242 10^3/cmm (157-399); Red Blood Count 4.39 10^6/uL (3.85-5.65); White Blood Count 10.20 10^3/uL (3.29-11.43)
[2025-05-25 16:30] LABS: Alanine Aminotransferase 16 U/L (0-33); Albumin Level 3.6 g/dL (3.5-5.2); Alkaline Phosphatase 117 U/L (35-105); Aspartate Amino Transferase 36 U/L (0-32); Blood Urea Nitrogen 11 mg/dL (8-23); Calcium 8.7 mg/dL (8.5-10.5); Carbon Dioxide 22 mmol/L (22-29); Chloride 105 mmol/L (98-107); Creatinine Clr Calc Pharmacy 62.5768; Globulin 2.8 g/dL (1.3-4.6); Glucose 90 mg/dL (65-115); Osmolality Calculated 293 mOsm/kg (285-295); Sodium 142 mmol/L (136-145); Total Protein 6.4 g/dL (6.6-8.7)
[2025-05-25 16:44] LABS: Anion Gap 19.0 (5-19); Potassium 4.0 mmol/L (3.5-5.1)
[2025-05-25 16:47] LABS: Glucose Urine UA Negative (Normal); Nitrate Urine Negative (Negative); Specific Gravity, Urine 1.023 (1.005-1.030)
[2025-05-25 16:49] LABS: Respiratory Syncytial Virus Ce NEGATIVE (Negative); SARS-CoV-2 PCR NEGATIVE (Negative)
[2025-05-25 16:52] LABS: Add Urine Microscopic? YES; Universal Test for UA Present (0)
[2025-05-25 17:10] LABS: UA Slide Review UA Slide Review Perf
== END 2025-05-25 22:09 | disposition home or self-care (01) ==
PROVIDERS: Emergency Provider Physician Assistant; PCP Family Medicine
DX: T50.905A Adverse effect of unspecified drugs, medicaments and biological substances, initial encounter (principal); Z11.52 Encounter for screening for COVID-19; X58.XXXA Exposure to other specified factors, initial encounter
CPT/HCPCS: 36416; 70450; 71045; 80053; 81001; 82962; 85025; 87637; 93005; 99285

== ENCOUNTER 2025-07-18 08:44 | Outpatient (CLI) | payer MEDICARE, SELFPAY ==
[2025-07-18 09:05] LABS: Glucose Urine UA Negative (Normal); Nitrate Urine Negative (Negative); Specific Gravity, Urine 1.019 (1.005-1.030)
[2025-07-18 09:33] LABS: Add Urine Microscopic? YES; UA Manual Slide Review YES
== END 2025-07-18 08:45 | disposition home or self-care (01) ==
PROVIDERS: PCP Family Medicine; Visit Provider Family Medicine
DX: N39.0 Urinary tract infection, site not specified (principal)
CPT/HCPCS: 81001; 87086